=== PATIENT | male | born 1955 | race Caucasian/White ===

== ENCOUNTER 2022-09-29 09:15 | Outpatient (CLI) | payer BC ==
[2022-09-29 12:28] LABS: BASOPHILS % (AUTO) 0.5 %; EOSINOPHILS # (AUTO) 0.2 10^3/uL (0.0-0.7); EOSINOPHILS % (AUTO) 3.8 %; HCT - HEMATOCRIT 48.1 % (42.0-52.0); HGB - HEMOGLOBIN 16.3 g/dL (14.0-18.0); LYMPHOCYTES # (AUTO) 1.6 10^3/uL (1.5-3.5); LYMPHOCYTES % (AUTO) 29.7 %; MEAN CORPUSCULAR HEMOGLOBIN 31.2 pg (27.0-31.0); MEAN CORPUSCULAR HGB CONC 33.9 g/dL (32.0-36.0); MEAN CORPUSCULAR VOLUME 92.1 fL (80.0-94.0); MEAN PLATELET VOLUME 10.7 fL (7.4-11.4); MONOCYTES # (AUTO) 0.5 10^3/uL (0.0-1.0); MONOCYTES % (AUTO) 8.6 %; NEUTROPHILS # (AUTO) 3.1 10^3/uL (1.5-6.6); PLT - PLATELET COUNT 212 10^3/uL (130-450); RED BLOOD COUNT 5.22 10^6/uL (4.70-6.10); RED CELL DISTRIBUTION WIDTH 12.3 % (12.0-15.0); WHITE BLOOD COUNT 5.5 x10^3/uL (4.8-10.8)
[2022-09-29 12:56] LABS: ALBUMIN 4.4 g/dL (3.2-5.5); ALBUMIN/GLOBULIN RATIO 1.6 (1.0-2.2); ALKALINE PHOSPHATASE 102 IU/L (42-121); ALT ALANINE AMINOTRANSFERASE 30 IU/L (10-60); AST ASPARTATE AMINOTRANSFERASE 24 IU/L (10-42); BILIRUBIN,TOTAL 0.8 mg/dL (0.2-1.0); BUN - BLOOD UREA NITROGEN 18 mg/dL (6-20); CALCIUM 9.1 mg/dL (8.5-10.3); CARBON DIOXIDE - CO2 33 mmol/L (21-32); CHLORIDE 96 mmol/L (101-111); CHOL/HDL RATIO 4.1 (<5.0); CHOLESTEROL 147 mg/dL; CREATININE 1.2 mg/dL (0.6-1.2); GFR - MDRD 61 (>89); GLUCOSE 250 mg/dL (70-100); HDL CHOLESTEROL 36 mg/dL; LDL CHOLESTEROL,CALCULATED 72 mg/dL; SODIUM 136 mmol/L (135-145); TOTAL PROTEIN 7.1 g/dL (6.7-8.2); TRIGLYCERIDES 196 mg/dL; VLDL CHOLESTEROL 39 mg/dL
[2022-09-29 12:58] LABS: ESTIMATED AVERAGE GLUCOSE 212 mg/dL (70-100)
[2022-09-29 13:01] LABS: THYROID STIMULATING HORMONE 2.61 uIU/mL (0.34-5.60)
== END 2022-09-29 09:16 | disposition home or self-care (01) ==
LOC: LAB.N 09:15
PROVIDERS: ATTEND Physician Assistant
DX: E11.9 Type 2 diabetes mellitus without complications (principal); E78.5 Hyperlipidemia, unspecified; Z51.81 Encounter for therapeutic drug level monitoring; I10 Essential (primary) hypertension
CPT/HCPCS: 36415; 80053; 80061; 83036; 83721; 84443; 85025

== ENCOUNTER 2023-02-21 10:40 | Outpatient (CLI) | payer MEDICARE, OTHER ==
[2023-02-21 12:29] LABS: BUN - BLOOD UREA NITROGEN 19 mg/dL (6-20); CALCIUM 9.9 mg/dL (8.5-10.3); CARBON DIOXIDE - CO2 34 mmol/L (21-32); CHLORIDE 97 mmol/L (101-111); CHOL/HDL RATIO 3.4 (<5.0); CHOLESTEROL 129 mg/dL; CREATININE 1.3 mg/dL (0.6-1.3); GFR - MDRD 55 (>89); GLUCOSE 137 mg/dL (74-104); HDL CHOLESTEROL 38 mg/dL; LDL CHOLESTEROL,CALCULATED 76 mg/dL; POTASSIUM 3.8 mmol/L (3.5-4.5); SODIUM 137 mmol/L (135-145); TRIGLYCERIDES 74 mg/dL (48-352); VLDL CHOLESTEROL 15 mg/dL
[2023-02-21 12:33] LABS: CREATININE,URINE 95.4 mg/dL; MICROALBUM/CREATININE RATIO,UR 11.5 ug/mg (<30.0); MICROALBUMIN,URINE 1.1 mg/dL
[2023-02-21 12:37] LABS: ESTIMATED AVERAGE GLUCOSE 140 mg/dL (70-100); HEMOGLOBIN A1c% 6.5 % (4.27-6.07)
== END 2023-02-21 10:41 | disposition home or self-care (01) ==
LOC: LAB.N 10:40
PROVIDERS: ATTEND Physician Assistant
DX: E11.65 Type 2 diabetes mellitus with hyperglycemia (principal); E78.1 Pure hyperglyceridemia
CPT/HCPCS: 36415; 80048; 80061; 82043; 82570; 83036; 83721

== ENCOUNTER 2023-05-24 10:55 | Outpatient (CLI) | payer MEDICARE, OTHER ==
[2023-05-24 18:12] LABS: CALCIUM 9.7 mg/dL (8.5-10.3); CREATININE 1.3 mg/dL (0.6-1.3); POTASSIUM 5.1 mmol/L (3.5-4.5)
[2023-05-24 20:58] LABS: ESTIMATED AVERAGE GLUCOSE 146 mg/dL (70-100); HEMOGLOBIN A1c% 6.7 % (4.27-6.07)
== END 2023-05-24 10:56 | disposition home or self-care (01) ==
LOC: LAB.N 10:55
PROVIDERS: ATTEND Physician Assistant
DX: E11.65 Type 2 diabetes mellitus with hyperglycemia (principal)
CPT/HCPCS: 36415; 80048; 83036

== ENCOUNTER 2023-06-08 12:30 | Outpatient (CLI) | payer MEDICARE, OTHER ==
[2023-06-08 18:00] LABS: CALCIUM 9.3 mg/dL (8.5-10.3); CREATININE 1.3 mg/dL (0.6-1.3); POTASSIUM 3.6 mmol/L (3.5-4.5)
== END 2023-06-08 12:31 | disposition home or self-care (01) ==
LOC: LAB.N 12:30
PROVIDERS: ATTEND Physician Assistant
DX: E87.5 Hyperkalemia (principal)
CPT/HCPCS: 36415; 80048

== ENCOUNTER 2023-06-14 10:58 | Outpatient (CLI) | payer MEDICARE, OTHER ==
[2023-06-14] MEDS ORDERED: DIATRIZOATE MEGLU/DIATRIZO SOD 30 ML BOTTLE PO ONE ×2 (11:04→14:05)
[2023-06-14] MEDS ORDERED: iohexoL-300 100 ML VIAL ONE (11:04)
[2023-06-14] MEDS ORDERED: iohexoL-300 100 ML VIAL IVP ONE (14:05)
--- NOTE | 2023-06-20 11:21 | CT Report ---
PROCEDURE: Abdomen/Pelvis W INDICATIONS: LUQ ABD PAIN CONTRAST: iohexol 300 100ml TECHNIQUE: After the administration of intravenous contrast, a CT scan of the abdomen and pelvis was performed. Images were recorded and evaluated at appropriate window settings. Reformats: coronal and sagittal. F or radiation dose reduction, the following was used: automated exposure control, adjustment of mA and /or kV according to patient size. COMPARISON: None. FINDINGS: Image quality: Excellent. Lung bases and heart: Unremarkable. Liver: No solid mass. Gallbladder and biliary tree: Gallbladder surgically absent. Surgical clips seen in the right upper q uadrant. Spleen: No splenomegaly. Pancreas: No pancreatic ductal dilation. Adrenals: No adrenal nodule. Kidneys and ureters: No hydronephrosis. 2 cm cystic lesion of the interpolar region right kidney, mos tly exophytic, with thin cervantes is most likely a simple . No solid mass. Bowel and peritoneum: Small hiatal hernia. No bowel distension. No pathologic free fluid. Surgical cl ips in the right lower quadrant, likely prior appendectomy. Lymph nodes: No central or retroperitoneal adenopathy. Vessels: No infrarenal aortic aneurysm. PELVIS Reproductive organs: Prostate appears unremarkable. Testicles not visualized. Bladder: No abnormal wall thickening. Pelvic lymph nodes: No pelvic adenopathy by size criteria. Bones: No aggressive osseous abnormality. Other: No significant ventral or inguinal hernia. IMPRESSION: 1. Small hiatal hernia 2. Surgically absent gallbladder 3. A 2 cm cyst of the left kidney Reviewed by: Claudio Guillen MD on 06/14/2023 2:51 PM PST Approved by: Claudio Guillen MD on 06/14/2023 2:51 PM PST Station ID: [id number]
== END 2023-06-14 10:59 | disposition home or self-care (01) ==
LOC: DI 10:58
PROVIDERS: ATTEND Physician Assistant
DX: R10.12 Left upper quadrant pain (principal); K44.9 Diaphragmatic hernia without obstruction or gangrene; Z90.49 Acquired absence of other specified parts of digestive tract; N28.1 Cyst of kidney, acquired
CPT/HCPCS: 74177; Q9963; Q9967

== ENCOUNTER 2023-07-05 06:28 | Day surgery (SDC) | payer MEDICARE, OTHER ==
[2023-07-05] MEDS: LACTATED RINGERS 1,000 ML IV ONE ×2 (06:33→07:43)
[2023-07-05] MEDS ORDERED: MIDAZOLAM 2 MG/2 ML VIAL ONE (06:50)
[2023-07-05] MEDS ORDERED: PROPOFOL 500 MG/50 ML 500 MG/50 ML VIAL ONE (06:50)
--- NOTE | 2023-07-05 06:52 | ANESTHESIA ---
Pre-Anesthesia VS, & Labs - Diagnosis screening - Procedure colonoscopy Height: 5 ft 9 in Weight (kg): 84.9 kg Body Mass Index: 27.6 BMI Classification: Overweight - NPO >8 hours Home Medications and Allergies Home Medications: Ambulatory Orders Aspirin [Vazalore] 81 mg PO DAILY 07/04/23 Atorvastatin [Lipitor] 20 mg PO DAILY 07/04/23 Lisinopril [Zestril] 40 mg PO DAILY 07/04/23 Omeprazole 20 mg PO DAILY 07/04/23 hydroCHLOROthiazide [Hydrochlorothiazide] 50 mg PO DAILY 07/04/23 metFORMIN [Glucophage] 1,000 mg PO DAILY 07/04/23 Aspirin [Vazalore] 81 mg PO DAILY 07/04/23 Atorvastatin [Lipitor] 20 mg PO DAILY 07/04/23 Lisinopril [Zestril] 40 mg PO DAILY 07/04/23 Omeprazole 20 mg PO DAILY 07/04/23 hydroCHLOROthiazide [Hydrochlorothiazide] 50 mg PO DAILY 07/04/23 metFORMIN [Glucophage] 1,000 mg PO DAILY 07/04/23 Allergies/Adverse Reactions: Allergies Allergy/AdvReac Type Severity Reaction Status Date / Time No Known Drug Allergies Allergy Verified 07/04/23 12:27 Anes History & Medical History - Anesthetic History Anesthesia Complications: reports: No previous complications, Pseudocholinesterase deficiency Family history of Malignant Hyperthermia: Denies - Medical History Cardiovascular: reports: Hypertension, High cholesterol Gastrointestinal: reports: GERD, Cholelithiasis Urinary: reports: None Musculoskeletal: reports: Gout Endocrine/Autoimmune: reports: Type 2 diabetes Skin: reports: None - Surgical History General: reports: Cholecystectomy, Colonoscopy Eyes Ears Nose Throat (EENT): reports: Rhinoplasty, Other Exam General: Alert, Oriented x3, Cooperative Dental: Dentures full Upper, Poor dentition Mouth Openin Fingerbreadth Neck Mobility: Normal Mallampati classification: II Thyromental Distance: 4-6 cm Respiratory: Lungs clear, Normal breath sounds, No respiratory distress Cardiovascular: Regular rate Neurological: Normal speech Mental/Cognitive Status: Alert/Oriented X3, Normal for patient Cognitive Status: Within normal limits Plan Anesthesia Type: Total IV Consent for Procedure(s) Verified and Reviewed: Yes Code Status: Attempt Resuscitation ASA classification: 2-Mild systemic disease Is this case an emergency?: No
[2023-07-05 08:16] VITALS: BP 114/98; O2SAT 94
--- NOTE | 2023-07-05 08:45 | ANESTHESIA POST OP EVALUATION ---
Anesthesia Post Eval - Post Anesthesia Eval Vitals: Last Vital Signs Temp 36.3 C L 07/05/23 07:58 Pulse 66 07/05/23 07:58 Resp 16 07/05/23 07:58 BP 114/98 H 07/05/23 07:58 Pulse Ox 94 07/05/23 07:58 O2 Flow Rate CV Function Including HR & BP: Stable Pain Control: Satisfactory Nausea & Vomiting: Negative Mental Status: Baseline Respiratory Status: Airway Patent Hydration Status: Satisfactory Anesthesia Complications: None
== END 2023-07-05 06:29 | disposition home or self-care (01) ==
LOC: SDS 06:28
PROVIDERS: ATTEND Surgery
DX: Z12.11 Encounter for screening for malignant neoplasm of colon (principal); E11.9 Type 2 diabetes mellitus without complications; Z79.84 Long term (current) use of oral hypoglycemic drugs
CPT/HCPCS: G0121; J7120

== ENCOUNTER 2023-09-24 10:35 | Outpatient (CLI) | payer MEDICARE, OTHER ==
[2023-09-24 17:55] LABS: BASOPHILS % (AUTO) 0.6 %; EOSINOPHILS # (AUTO) 0.2 10^3/uL (0.0-0.7); EOSINOPHILS % (AUTO) 3.2 %; HCT - HEMATOCRIT 47.4 % (42.0-52.0); HGB - HEMOGLOBIN 15.4 g/dL (14.0-18.0); LYMPHOCYTES # (AUTO) 1.7 10^3/uL (1.5-3.5); LYMPHOCYTES % (AUTO) 35.6 %; MEAN CORPUSCULAR HEMOGLOBIN 30.6 pg (27.0-31.0); MEAN CORPUSCULAR HGB CONC 32.5 g/dL (32.0-36.0); MEAN PLATELET VOLUME 10.7 fL (7.4-11.4); MONOCYTES # (AUTO) 0.4 10^3/uL (0.0-1.0); MONOCYTES % (AUTO) 9.1 %; NEUTROPHILS # (AUTO) 2.4 10^3/uL (1.5-6.6); NEUTROPHILS % (AUTO) 51.3 %; PLT - PLATELET COUNT 209 10^3/uL (130-450); RED BLOOD COUNT 5.04 10^6/uL (4.70-6.10); RED CELL DISTRIBUTION WIDTH 12.5 % (12.0-15.0); WHITE BLOOD COUNT 4.6 x10^3/uL (4.8-10.8)
[2023-09-24 18:10] LABS: ALBUMIN 4.7 g/dL (3.2-5.5); ALBUMIN/GLOBULIN RATIO 2.2 (1.0-2.2); ALKALINE PHOSPHATASE 85 IU/L (42-121); ALT ALANINE AMINOTRANSFERASE 20 IU/L (10-60); AST ASPARTATE AMINOTRANSFERASE 20 IU/L (10-42); BILIRUBIN,TOTAL 0.8 mg/dL (0.2-1.0); BUN - BLOOD UREA NITROGEN 19 mg/dL (6-20); CALCIUM 9.8 mg/dL (8.5-10.3); CARBON DIOXIDE - CO2 34 mmol/L (21-32); CHLORIDE 97 mmol/L (101-111); CHOL/HDL RATIO 3.2 (<5.0); CHOLESTEROL 116 mg/dL; CREATININE 1.2 mg/dL (0.6-1.3); GFR - MDRD 60 (>89); GLUCOSE 166 mg/dL (74-104); HDL CHOLESTEROL 36 mg/dL; LDL CHOLESTEROL,CALCULATED 64 mg/dL; LDL/HDL RATIO 1.8 (<3.6); POTASSIUM 3.7 mmol/L (3.5-4.5); SODIUM 137 mmol/L (135-145); TOTAL PROTEIN 6.8 g/dL (6.4-8.9); TRIGLYCERIDES 80 mg/dL (48-352); VLDL CHOLESTEROL 16 mg/dL
[2023-09-24 18:16] LABS: CREATININE,URINE 101.7 mg/dL; MICROALBUM/CREATININE RATIO,UR 20.6 ug/mg (<30.0); MICROALBUMIN,URINE 2.1 mg/dL
[2023-09-24 18:36] LABS: THYROID STIMULATING HORMONE 2.04 uIU/mL (0.34-5.60)
[2023-09-24 20:29] LABS: ESTIMATED AVERAGE GLUCOSE 148 mg/dL (70-100); HEMOGLOBIN A1c% 6.8 % (4.27-6.07)
== END 2023-09-24 10:36 | disposition home or self-care (01) ==
LOC: LAB.N 10:35
PROVIDERS: ATTEND Physician Assistant
DX: E11.65 Type 2 diabetes mellitus with hyperglycemia (principal); Z12.5 Encounter for screening for malignant neoplasm of prostate
CPT/HCPCS: 36415; 80053; 80061; 82043; 82570; 83036; 84443; 85025; G0103; 83721; 84153

== ENCOUNTER 2024-02-06 09:30 | Outpatient (CLI) | payer MEDICARE, OTHER ==
[2024-02-06 12:48] LABS: CALCIUM 9.5 mg/dL (8.5-10.3); CREATININE 1.2 mg/dL (0.6-1.3); POTASSIUM 3.6 mmol/L (3.5-4.5)
[2024-02-06 13:17] LABS: ESTIMATED AVERAGE GLUCOSE 166 mg/dL (70-100); HEMOGLOBIN A1c% 7.4 % (4.27-6.07)
== END 2024-02-06 09:31 | disposition home or self-care (01) ==
LOC: LAB.N 09:30
PROVIDERS: ATTEND Physician Assistant
DX: E11.65 Type 2 diabetes mellitus with hyperglycemia (principal); Z12.5 Encounter for screening for malignant neoplasm of prostate
CPT/HCPCS: 36415; 80048; 83036; G0103; 84153